=== PATIENT | female | born 2000 | race African-American/Black ===

== ENCOUNTER 2022-06-27 19:18 | Emergency (ER) | payer OTHER ==
[2022-06-27 19:38] VITALS: BP 149/97; PULSE 100; RESP 18; TEMP 98.8; BMI 32.4
[2022-06-27] MEDS ORDERED: IBUPROFEN 600 MG TABLET (FP) PO ONE ×2 (20:56→21:04)
[2022-06-27] MEDS ORDERED: METHOCARBAMOL 500 MG TABLET PO ONE (20:56)
[2022-06-27] MEDS ORDERED: METHOCARBAMOL 500 MG TABLET ONE (21:04)
== END 2022-06-27 21:07 | disposition home or self-care (01) ==
LOC: JERFT 19:18
DX: M79.10 Myalgia, unspecified site (principal)
CPT/HCPCS: 99283-25

== ENCOUNTER 2022-11-13 17:07 | Emergency (ER) | payer OTHER ==
[2022-11-13 17:19] VITALS: BP 132/70; RESP 15; TEMP 99; BMI 32.8
[2022-11-13 18:08] VITALS: PULSE 80
== END 2022-11-13 18:30 | disposition home or self-care (01) ==
LOC: FER 17:07
DX: R50.9 Fever, unspecified (principal); Z20.822 Contact with and (suspected) exposure to COVID-19
CPT/HCPCS: 0241U-QW; 71045-TC-FY; 99284-25